=== PATIENT | female | born 1955 | race Caucasian/White ===

== ENCOUNTER → 2024-01-01 13:24 | Outpatient (REF) | payer OTHER, SELFPAY | LOC: RCS 13:24 | PROVIDERS: ATTENDING PHYSICIAN Internal Medicine Cardiovascular Disease; FAMILY PHYSICIAN Family Medicine | DX: I47.10 Supraventricular tachycardia, unspecified (principal) | CPT/HCPCS: 93017; 93350 ==

== ENCOUNTER → 2024-03-04 06:26 | Day surgery (SDC) | payer OTHER, SELFPAY | LOC: GI 06:26 | PROVIDERS: ATTENDING PHYSICIAN Internal Medicine | DX: Z12.11 Encounter for screening for malignant neoplasm of colon (principal); D12.3 Benign neoplasm of transverse colon; K64.4 Residual hemorrhoidal skin tags; Q43.8 Other specified congenital malformations of intestine; Z80.0 Family history of malignant neoplasm of digestive organs | CPT/HCPCS: 45390; 45385; 88305 ==

== ENCOUNTER 2024-11-17 01:49 | Emergency (ER) | payer OTHER, SELFPAY ==
[2024-11-17 01:50] VITALS: BP 144/86
[2024-11-17 02:12] VITALS: BP 114/79
[2024-11-17 02:21] VITALS: BMI 32.7
[2024-11-17 02:56] LABS: COVID-19 Antigen Negative (Negative)
--- NOTE | 2024-11-17 03:20 | ED.GENMED ---
History of Present Illness
General
Chief Complaint: Breathing Problem
Source: patient
Exam Limitations: none
Time Seen by Provider: 11/17/24 02:22
Nursing documentation reviewed up to this point in time: agreed with
History of Present Illness
History of Present Illness:
This a pleasant 69-year-old female who presents to the emergency department with cough, fever and malaise. She states that she got home from work on Friday feeling the symptoms. Friday morning she awakened with worsening symptoms on Friday the
symptoms stayed about the same. Today she developed worsening cough and was concerned that she was developing pneumonia. She states that overall she is feeling better. 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 She does
have numerous encounters with sick contacts. Denies any current chest pain or shortness of breath.
Past History
Past History
ED Past Medical History: Cancer and Other
ED Past Surgical History: Appendectomy, and Other (Breast lumpectomy)
Social History
Tobacco: Non-smoker
Alcohol: None
Drug: None
Personal:
Living: with family
Employment: Employed
Family History
Family History: Hypertension
Review of Systems
Review of Systems
Allergies reviewed?: Yes
All Other Systems: Not applicable
Constitutional: Reports fever, fatigue and sleep disturbance
EENT: Reports no symptoms
Respiratory: Reports cough
Cardiac: Reports no symptoms
ABD/GI: Reports no symptoms
: Reports no symptoms
Musculoskeletal: Reports no symptoms
Skin: Reports no symptoms
Neurological: Reports no symptoms
Endocrine: Reports no symptoms
Hematologic/Lymphatic: Reports no symptoms
Psychiatric: Reports no symptoms
Phy Exam
General Physical Exam
General Presentation: well appearing and no apparent distress
General age: appears stated age
General Skin: warm
General Habitus: normal
General Mental: alert
General Hydration: appears well hydrated
Eye Exam
Eye Exam: PERRL, cornea clear and conjunctiva normal
Cardiovascular Exam
Cardiovascular Exam: regular rate/rhythm, no edema, no murmur and normal peripheral pulses
Pulmonary Exam
Pulmonary Exam: lungs clear, no respiratory distress, no rales, no crackles, no rhonchi, no stridor, no wheezing and no cough
Gastrointestinal Exam
Gastrointestinal Exam: normal bowel sounds, non tender, soft, no organomegaly, no pulsatile mass and non distended
Neurological Exam
Neurological Exam: alert, oriented x3, no motor deficits and speech normal
Musculoskeletal Exam
Musculoskeletal Exam: full ROM and no edema
Skin Exam
Skin Exam: normal color, warm/dry, no rash and no petechia
Psychiatric Exam
Psychiatric Exam: normal mood/affect
Scores
Heart Failure Risk
Heart Failure Risk Score: Not Applicable
Sepsis
Sepsis Screening
Sepsis Assessment: Sepsis Ruled Out
Sepsis Screen
Sepsis Screen: Sepsis Ruled Out
Date: 11/17/24
Time: 05:15
Course
Orders/Labs/Results
Orders:
Orders
11/17/24 02:22
CR Chest - 2 Views Urgent
Comment:
Reason For Exam: cough
11/17/24 02:28
COVID-19 Antigen Urgent
Source: Nasal Swab
Influenza A+B Rapid Molecular Urgent
JULIETTE Source: Nasal Swab
Specimen Description:
Vital Signs
Initial and Last Documented VS:
Initial Vital Signs
Temp Pulse Resp BP Pulse Ox
98.2 F 90 24 144/86 98
11/17/24 01:50 11/17/24 01:50 11/17/24 01:50 11/17/24 01:50 11/17/24 01:50
Last Documented Vital Signs
Temp Pulse Resp BP Pulse Ox
98.2 F 77 13 125/76 94
11/17/24 01:50 11/17/24 02:30 11/17/24 02:30 11/17/24 03:34 11/17/24 03:34
*Critical Care Note
Total Time (30-74mins, 75-104mins- exclusive of procedures): Not Applicable
ED Attending Note
-
Portions of this chart may have been created with voice recognition software.� Occasional wrong word or��sound alike� substitutions may have occurred due to the inherent limitations of voice recognition software.
Discharge Plan
Departure
Patient Disposition: Home (Routine Discharge)
Date of Disposition: 11/17/24
Time of Disposition: 03:22
Patient with high blood pressure during this ER visit?: Yes
Condition: Good
Discharge Problem:
Influenza
Instructions: Flu in adults - Discharge instructions
Prescriptions:
No Action
chlorpheniramine maleate 4 MG tablet
4 mg PO PRN PRN (Reason: allergies)
metoprolol succinate 25 MG tablet extended release 24 hr
25 mg PO DAILY
esomeprazole magnesium [Nexium 24HR] 22.3 MG capsule,delayed release(DR/EC)
22.3 mg PO DAILY
hydrocodone-acetaminophen 1 TABLET tablet
1 - 2 tab PO Q4HPRN PRN (Reason: moderate to severe pain) Qty: 20 0RF
Referrals:
Tra Wade MD [Family Provider] -
Stand Alone Forms: Return to Work
Activity Restrictions/Additional Instructions:
It was a pleasure meeting you and taking part in your care. We hope for your continued healing and wellness.
Please read discharge instructions in their entirety. However, they are for general education and may not describe your exact diagnosis at discharge. Information on your ER visit and medical conditions were discussed with you along with appropriate
follow up information...
If indicated, please take your medications as instructed and indicated on discharge paperwork.
Please schedule a follow up appointment as directed. Call to schedule an appointment
Please return to the emergency department with ANY change in, persisting, or worsening of symptoms. If any of your symptoms do not improve, or persist, or become more severe within 6-12 hours, please return to the emergency department for further
care.
Please return to the emergency department if you develop a headache, neck pain/stiffness, fever greater than 100.4F, chest pain, shortness of breath, persistent nausea, vomiting, slurred speech, difficulty walking, numbness/tingling, weakness, signs
of infection or any other symptoms that are worrisome to you.
If you have any questions or concerns please do not hesitate to call the Hospital at or E-mail me directly at [email or web address]
Interventions
Interventions:
*Risk Screen - Suicide Last Done: 11/17/24 01:50
*General Assessment Last Done: 11/17/24 02:22
*Neglect/Abuse Screening Last Done: 11/17/24 01:50
ED- Fall Risk Assessment Last Done: 11/17/24 02:22
*ED COVID-19 Vaccine History Last Done: 11/17/24 02:22
*Nursing Disposition Last Done: 11/17/24 03:45
ED- Cardiac Assessment Last Done: 11/17/24 02:22
ED- Pulmonary Assessment Last Done: 11/17/24 02:22
Discharge Date and Time
Discharge Date/Time: 11/17/24 03:45
Print Language: ARMENIAN
[2024-11-17 03:34] VITALS: BP 125/76
== END 2024-11-17 03:45 | disposition home or self-care (01) ==
LOC: EMR 01:49
PROVIDERS: EMERGENCY PHYSICIAN Student in an Organized Health Care Education/Training Program; FAMILY PHYSICIAN Family Medicine
DX: J10.1 Influenza due to other identified influenza virus with other respiratory manifestations (principal); Z82.49 Family history of ischemic heart disease and other diseases of the circulatory system; Z90.49 Acquired absence of other specified parts of digestive tract
CPT/HCPCS: 99283; 71046; 87502; 87811

== ENCOUNTER 2025-05-09 06:29 | Day surgery (SDC) | payer OTHER, SELFPAY | END 2025-05-09 14:05 | disposition home or self-care (01) | LOC: GI 06:29 | PROVIDERS: ATTENDING PHYSICIAN Internal Medicine | DX: Z12.11 Encounter for screening for malignant neoplasm of colon (principal); K64.9 Unspecified hemorrhoids; K63.5 Polyp of colon; Z86.0101 Personal history of adenomatous and serrated colon polyps; Z98.890 Other specified postprocedural states | CPT/HCPCS: 45385; 88305 ==

== ENCOUNTER 2025-07-09 14:54 | Emergency (ER) | payer OTHER, SELFPAY ==
[2025-07-09 15:00] VITALS: BP 165/100
--- NOTE | 2025-07-09 18:20 | ED.MUSCINJ ---
HPI-Injury
General
Chief Complaint: Musculo-Skeletal Complaint
Source: patient
Exam Limitations: none
Time Seen by Provider: 07/09/25 16:09
Nursing documentation reviewed up to this point in time: agreed with
History of Present Illness-Injury
Initial Injury comments:
70 yo female w h/o hypertension, presents for left knee pain. She had her grandchildren over the past weekend and was doing 'a lot' of walking, has had increasing left knee pain since, and today, could not weight bear today due to the pain.
She states on 05/31 at work as [employer], she was helping a client unloading groceries, tripped and caught herself hard on the left foot/leg. Discomfort has waxed and waned in the knee sing then, but got relief with Ibuprofen.
Past History
Past History
ED Past Medical History: Cancer and Other
ED Past Surgical History: Appendectomy, and Other (Breast lumpectomy)
Social History
Tobacco: Non-smoker
Alcohol: None
Drug: None
Personal:
Living: with family
Employment: Employed
Family History
Family History: Hypertension
Review of Systems
Review of Systems
Allergies reviewed?: Yes
All Other Systems: ROS reviewed and negative except as documented in HPI and ROS
Phy Exam
Physical Exam
Physical Exam:
PHYSICAL EXAMINATION:
General: no apparent distress, not acutely ill
Heart: RRR
Lungs: CTA
Neuro: alert and oriented.
Psychiatric: well kept. interactive and cooperative
Musculoskeletal: Left knee is tender to palpate. Pain is relieved when she flexes her knee. It is worse with straightening but she is able to straighten completely. The foot and ankle are nontender. There is mild
tenderness about the mid beasley up to just above the knee. The knee is moderately tender to palpate. There is mild swelling compared to the other knee. Distal neurovascular intact. The hip area is nontender, she can straight leg raise each leg
easily.
Skin: Warm, pink.
Injury Course
Orders/Labs/Results
Orders:
Orders
07/09/25 17:24
Dexamethasone [Decadron] 10 mg PO NOW STA
Knee, Left 4 or More Views [CR Knee - Left 4 Or More View*] Urgent
Comment:
Reason For Exam: pain after overuse
MDM/Problems Addressed
Differential Diagnosis Includes:
sprain, effusion, meniscus tear, arthritis
MDM/Problems Addressed:
70 yo female w h/o hypertension, presents for left knee pain. She had her grandchildren over the past weekend and was doing 'a lot' of walking, has had increasing left knee pain since, and today, could not weight bear today due to the pain.
She states on 05/31 at work as [employer], she was helping a client unloading groceries, tripped and caught herself hard on the left foot/leg. Discomfort has waxed and waned in the knee sing then, but got relief with Ibuprofen.
Knee xray: FINDINGS/IMPRESSION:
No acute fracture or dislocation
The joint spaces are maintained. Tiny patellar marginal osteophytes. Small suprapatellar joint effusion. The soft tissues are unremarkable.
7:30 PM: Patient out of bed and ambulating well with walker. She was provided a walker to take home.
She did not want a knee immobilizer or Jhon wrap as her knee feels better when it is slightly bent.
Referred to orthopedics for follow-up
Note for off work until 07/13 provided
Rx for prednisone 40 mg daily for the next 3 days sent to her pharmacy.
*Pulse Oximetry
SaO2: 98
Oxygen Mode of Delivery: Room air
Patient hypoxic: not evaluated
*Critical Care Note
Total Time (30-74mins, 75-104mins- exclusive of procedures): Not Applicable
ED Attending Note
-
Portions of this chart may have been created with voice recognition software.� Occasional wrong word or��sound alike� substitutions may have occurred due to the inherent limitations of voice recognition software.
Discharge Plan
Departure
Patient Disposition: Home (Routine Discharge)
Date of Disposition: 07/09/25
Time of Disposition: 19:28
Patient with high blood pressure during this ER visit?: No
Condition: Good
Discharge Problem:
Soft tissue injury of left knee
Instructions: Knee Sprain (DC), Using Cold for Pain
Prescriptions:
No Action
chlorpheniramine maleate 4 MG tablet
4 mg PO PRN PRN (Reason: allergies)
metoprolol succinate 25 MG tablet extended release 24 hr
25 mg PO DAILY
esomeprazole magnesium [Nexium 24HR] 22.3 MG capsule,delayed release(DR/EC)
22.3 mg PO DAILY
hydrocodone-acetaminophen 1 TABLET tablet
1 - 2 tab PO Q4HPRN PRN (Reason: moderate to severe pain) Qty: 20 0RF
Referrals:
Qing Flores MD [Family Provider, Family Practice]
Blake Watts MD [Active, Orthopedics] - Call in 1-3 days for appt
Stand Alone Forms: Return to Work
Activity Restrictions/Additional Instructions:
As we discussed, Tylenol and/or ibuprofen as needed for pain.
I sent a prescription for prednisone to your pharmacy to take 40 mg a day for the next 3 days for inflammation.
Call the orthopedic doctors office Friday morning and make next available appointment. You may need further imaging if the knee is not improving
Use the walker as needed until you can walk comfortably without it.
Interventions
Interventions:
*Risk Screen - Suicide Last Done: 07/09/25 15:00
*General Assessment Last Done: 07/09/25 15:00
*Neglect/Abuse Screening Last Done: 07/09/25 15:00
*ED- Fall Risk Assessment Last Done: 07/09/25 15:00
*ED COVID-19 Vaccine History Last Done: 07/09/25 15:00
*Nursing Disposition Last Done: 07/09/25 19:56
ED-Musculoskeletal Assessment Last Done: 07/09/25 16:26
Discharge Date and Time
Discharge Date/Time: 07/09/25 19:59
Print Language: IRAQI
[2025-07-09] MEDS: DECADRON 10 MG PO (18:44)
[2025-07-09 19:58] VITALS: BP 154/82
== END 2025-07-09 19:59 | disposition home or self-care (01) ==
LOC: EMR 14:54
PROVIDERS: EMERGENCY PHYSICIAN Emergency Medicine; FAMILY PHYSICIAN Family Medicine
DX: S89.92XA Unspecified injury of left lower leg, initial encounter (principal); I10 Essential (primary) hypertension; Z90.49 Acquired absence of other specified parts of digestive tract
CPT/HCPCS: 99283; 73564

== ENCOUNTER → 2025-08-10 06:37 | Outpatient (REF) | payer OTHER, SELFPAY | LOC: MRI 06:37 | PROVIDERS: ATTENDING PHYSICIAN Physician Assistant Surgical; FAMILY PHYSICIAN Family Medicine | DX: M25.562 Pain in left knee (principal) | CPT/HCPCS: 73721 ==